=== PATIENT | female | born 1970 | race Caucasian/White ===

== ENCOUNTER 2021-07-04 17:58 | Observation (INO) | payer BC ==
[~2021-07-04] VITALS: Ht 160 cm; Wt 101.2 kg
[~2021-07-04 17:58] MED LIST: CLINDAMYCIN HC300 MG PO
[2021-07-04 21:40] LABS: HEMOGLOBIN 13.4 gm/dl (12.3-15.3); RED BLOOD COUNT 4.71 M/UL (4.00-5.10); WHITE BLOOD COUNT 4.9 K/UL (4.5-11.0)
[2021-07-04 21:58] LABS: BUN/CREATININE RATIO 20 (0-10)
[2021-07-05 06:04] LABS: HEMOGLOBIN 12.9 gm/dl (12.3-15.3); RED BLOOD COUNT 4.54 M/UL (4.00-5.10)
[2021-07-05 06:06] LABS: WHITE BLOOD COUNT 6.2 K/UL (4.5-11.0)
[2021-07-05 06:36] LABS: BUN/CREATININE RATIO 18 (0-10)
[2021-07-05] MEDS ORDERED: RYBELSUS3 MG PO (10:11)
[2021-07-05] MEDS ORDERED: METFORMIN HCL500 MG PO (10:12)
[2021-07-05] MEDS ORDERED: DOXYCYCLINE HY100 M2 PO (11:01)
[2021-07-05] MEDS ORDERED: LEVOFLOXACIN500 MG PO (11:01)
[2021-07-06 04:17] LABS: HEMOGLOBIN 12.4 gm/dl (12.3-15.3); RED BLOOD COUNT 4.37 M/UL (4.00-5.10); WHITE BLOOD COUNT 5.2 K/UL (4.5-11.0)
[2021-07-06 04:26] LABS: BUN/CREATININE RATIO 9 (0-10)
== END 2021-07-06 11:16 | disposition home or self-care (01) ==
LOC: ER1 17:58 → CDU 23:27 → MED SURG 4 23:27
PROVIDERS: Internal Medicine; Physician Assistant; ADMIT Internal Medicine
DX: E11.628 Type 2 diabetes mellitus with other skin complications (principal); L03.115 Cellulitis of right lower limb; E87.6 Hypokalemia; E66.9 Obesity, unspecified; Z68.30 Body mass index [BMI] 30.0-30.9, adult; Z20.822 Contact with and (suspected) exposure to COVID-19
CPT/HCPCS: 36415; 80048; 80053; 80202; 82550; 82553; 82962; 83036; 83605; 83735; 83880; 84100; 84132; 84484; 85025; 85027; 85379; 85652; 86140; 87040; 96365; 96372; 96375; 96376; 99283; G0378; J1650; J1885; J2543; J3370; J7030; J7070; U0002